=== PATIENT | female | born 1995 | race African-American/Black ===

== ENCOUNTER 2023-08-12 15:46 | Emergency (ER) | payer OTHER ==
[~2023-08-12] VITALS: Ht 162.6 cm; Wt 75.0 kg
[2023-08-12 15:52] VITALS: PULSE 81; RESP 16
[2023-08-12 15:59] VITALS: BP 119/71; TEMP 98.4; O2SAT 99
== END 2023-08-12 17:34 | disposition home or self-care (01) ==
LOC: ER 16:00
DX: M79.644 Pain in right finger(s) (principal); M25.531 Pain in right wrist
CPT/HCPCS: 73120; 99283